=== PATIENT | male | born 1975 | race Caucasian/White ===

== ENCOUNTER → 2016-10-17 | Outpatient (CLI) | payer OTHER ==
--- NOTE | 2016-10-20 09:05 | DX ---
DEXA Bone Mineral Densitometry Clinical Indications: Hyperparathyroidism. Osteopenia. Comparison: November 13, 2014. Technique: Bone Mineral Densitometry (BMD) by Dual Energy X-Ray Absorptiometry (DEXA) was performed utilizing the retickr scanner. The lumbar spine was evaluated in the AP projection. Both hip s and the nondominant forearm were evaluated in the AP projection. Images were reviewed for spinal fr acture. AP Lumbar Spine: Vertebral bodies of L1, L2, L3, and L4 were assessed. BMD: 0.939 gm/cm2 T-score: -2.4 SD Z-score: -2.4 SD Current bone mineral density is 1.8% less than 2015. AP Left Hip: Neck BMD: 0.965 gm/cm2 T-score: -0.8 SD Z-score: -0.5 SD Current estimate is an increase of 1.5% compared to 2014. AP Right Hip: Neck BMD: 0.976 gm/cm2 T-score: -0.7 SD Z-score: -0.4 SD The current estimate is a decrease of 0.7% compared to 2014. AP Left Forearm, 10/11: BMD: 0.975 gm/cm2 T-score: -0.2 SD Z-score: -0.2 SD The current estimate is a decrease of 0.2% compared to 2014. Vertebral Fracture Assessment: No significant fracture deformity. Conclusion: Considering the lowest measured site, the patient is osteopenic. Changes from 2015 are no t statistically significant. Recommendations To prevent osteoporosis and to promote the patient's bone density, the following recommendations shou ld be considered: 1. Pursue a regular regimen of weightbearing and muscle strengthening exercises in order to reduce t he risk of falls and fractures (as tolerated by the patient's general medical condition). 2. Ensure that total daily calcium intake is 1500 mg (diet plus supplements). 3. Ensure that intake of vitamin D is 800 international units. 4. Consider follow up DEXA scan in two years to assess the rate of bone loss in this patient.
== END ==
LOC: FIMAGING 14:40
PROVIDERS: ATTEND Internal Medicine Endocrinology, Diabetes & Metabolism
DX: Z13.820 Encounter for screening for osteoporosis (principal); M85.80 Other specified disorders of bone density and structure, unspecified site; E21.3 Hyperparathyroidism, unspecified